=== PATIENT | female | born 1975 | race American Indian/Alaskan Native ===

== ENCOUNTER 2020-09-05 07:49 | Emergency (ER) | payer OTHER ==
[2020-09-05 07:55] VITALS: BP 131/76
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
[2020-09-05] MEDS ORDERED: IBUPROFEN 600 MG TAB PO ONE (08:10)
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
== END 2020-09-05 10:42 | disposition home or self-care (01) ==
LOC: ED 07:49
DX: S20.01XA Contusion of right breast, initial encounter (principal); S20.219A Contusion of unspecified front wall of thorax, initial encounter; Z79.899 Other long term (current) drug therapy; Z88.8 Allergy status to other drugs, medicaments and biological substances; V49.49XA Driver injured in collision with other motor vehicles in traffic accident, initial encounter; Y92.410 Unspecified street and highway as the place of occurrence of the external cause; Y93.89 Activity, other specified; Y99.8 Other external cause status
CPT/HCPCS: 71046